=== PATIENT | female | born 1955 | race Caucasian/White ===

== ENCOUNTER 2021-05-18 14:43 | Outpatient (CLI) | payer OTHER, SELFPAY ==
--- NOTE | 2021-05-18 14:47 | BI_ITS ---
MAMMOGRAPHY - BILATERAL SCREENING REASON FOR EXAM: Female, 65 years old. Routine annual screening examination. PERTINENT HISTORY: Non-contributory. TECHNIQUE: Digital bilateral breast remington (3D mammographic acquisition) in the CC and MLO projections. 2-D mediolateral oblique (MLO) and craniocaudad (CC) views of both breasts were obtained. CAD: Full Field Digital Mammography with Computer Added Detection was performed. COMPARISON: No comparison mammograms available at this time. If any prior films become available, an addendum to this report can be generated. FINDINGS: Breast Composition: There are scattered areas of fibroglandular density. There are no dominant masses or suspicious calcifications. Small benign-appearing bilateral axillary lymph nodes. No other significant abnormalities are identified. BI/SCRN MAMM (CAD)W/REMINGTON BILAT IMPRESSION: Negative screening mammogram. Yearly followup mammogram recommended. (A) ASSESSMENT CATEGORY: BIRADS Category 2: Benign. A letter regarding these results will be sent to the patient by the facility within 30 days. Approximately 10% of breast cancers are not detected by mammography. A normal mammogram should not delay biopsy of a clinically suspicious abnormality. [id number] Electronically Signed: Reinaldo Pantoja MD at 7:46 EST ,
== END 2021-05-18 23:59 | disposition home or self-care (01) ==
LOC: OPBI 14:45
PROVIDERS: Referring Provider Thoracic Surgery (Cardiothoracic Vascular Surgery); Visit Provider Thoracic Surgery (Cardiothoracic Vascular Surgery)
DX: Z12.31 Encounter for screening mammogram for malignant neoplasm of breast (principal)
CPT/HCPCS: 77063; 77067

== ENCOUNTER 2021-09-11 17:22 | Emergency (ER) | payer OTHER, SELFPAY ==
[2021-09-11 17:22] VITALS: BP 149/98; PULSE 63; RESP 12; TEMP 36.2; O2SAT 100; BMI 33.0
[2021-09-11 17:25] VITALS: O2SAT 98
--- NOTE | 2021-09-11 17:25 | ED.RN ---
ENCOURAGED DEEP BREATHING T CALMED. DISTRACTION WITH PHONE ALSO HELPED WITH BREATHING.
--- NOTE | 2021-09-11 17:54 | EKG12_ITS ---
Test Reason : CP Blood Pressure : / mmHG Vent. Rate : 069 BPM Atrial Rate : 069 BPM P-R Int : 182 ms QRS Dur : 078 ms QT Int : 380 ms P-R-T Axes : 033 004 008 degrees QTc Int : 407 ms Normal sinus rhythm Normal ECG Confirmed by SYEDA RAMIREZ, SARAH ([id number]), food expeditor [employer] ([id number]) on 09/13/2021 8:25:33 AM Referred By: ALBERTO Confirmed By:SARAH LANDA MD
--- NOTE | 2021-09-11 17:55 | EDS_ITS ---
HPI History of Present Illness Chief Complaint: Shortness of Breath Informant: patient Narrative Narrative: Sudden pain lower started on upper epigastric 2 PM today. Nausea dyspnea. Denies cough. History of achalasia with repair 15 years ago at [facility] with Dr. Galvan. She took Prilosec when symptoms occurred. Typically does not take daily medications. Denies recent travel, surgeries, immobilizations. No history of PE or DVT. No cough. Currently symptoms subsided. She is concerned of heart attack. She has 2 hypertension diabetes or cholesterol history. Stress test years ago. EKG from EMS reveals normal sinus rhythm no acute changes. Denies any current nausea. Prior similar symptoms: Yes PFSH PFSH Medical History no medical history Home Medications ascorbic acid (vitamin C) 500 mg tablet (Vitamin C) 500 mg PO DAILY 09/11/21 [History Last Taken Unknown] coenzyme Q10 100 mg capsule (Co Q-10) 100 mg PO DAILY 09/11/21 [History Last Taken Unknown] multivitamin 1 tab PO DAILY 09/11/21 [History Last Taken Unknown] Allergy/AdvReac Type Severity Reaction Status Date / Time No Known Allergies Allergy Verified 09/11/21 17:25 Surgical History no surgical history Social History Smoking Status: Current some day smoker tobacco type: cigarettes ROS ROS ED Constitutional Constitutional ED: Denies chills, fever(s) or sweats Eyes Eyes: Denies change in vision ENT ENT ED: Denies dysphagia or sore throat Cardiovascular Cardiovascular: Reports chest pain; Denies leg edema, palpitations or racing heartbeat Respiratory/Chest Respiratory/Chest: Reports dyspnea; Denies cough or dyspnea on exertion Gastrointestinal Gastrointestinal: Reports abdominal pain; Denies diarrhea, nausea or vomiting Genitourinary Genitourinary ED: Denies dysuria, hematuria or urinary frequency Musculoskeletal Musculoskeletal: Denies back pain, extremity pain or neck pain Integumentary Denies rash or wounds Neurologic Neurologic: Denies headache(s), paresthesias or weakness EXAM Physical Exam Const Vital Signs: 09/11/21 17:22 09/11/21 17:25 09/11/21 17:35 Temperature 97.1 F L Temperature Source Temporal Pulse Rate 63 Respiratory Rate 12 Respiratory Effort Normal Respiratory Depth Normal Respiratory Pattern Normal Blood Pressure 149/98 H Blood Pressure Mean 115 Pulse Ox 100 Oxygen Delivery Method Room Air Room Air Room Air 09/11/21 19:16 Temperature Temperature Source Pulse Rate 82 Respiratory Rate 18 Respiratory Effort Respiratory Depth Respiratory Pattern Blood Pressure 139/94 H Blood Pressure Mean 109 Pulse Ox 95 Oxygen Delivery Method Room Air Positive well nourished and well developed General Appearance ED: well developed and NAD HEENT Reports moist mucous membranes normocephalic and atraumatic Eyes PERRL, EOMs intact bilaterally and conjunctivae normal General Eye ED: Yes normal appearance of both eyes Neck no lymphadenopathy and supple General: Negative for tenderness Chest Wall Chest: Negative for tenderness Resp normal respiratory effort and normal air movement Effort and Inspection: symmetric chest movement; Negative for respiratory distress Cardio regular rate, regular rhythm and no murmurs Peripheral Pulses: pulses 2+ throughout GI normal to inspection, nondistended, normoactive bowel sounds and non-tender GI Narrative: Negative Carvalho's or McBurney's tenderness. Palpation: Negative for guarding or rebound tenderness present Back/Spine no CVA tenderness and no thoracic nor lumbar tenderness Extremity normal to inspection General Extremety ED: Negative for edema or tenderness General Extremity: Negative for edema Neuro oriented x3 and no sensory deficits noted Sensorium / Orientation: awake and alert Skin no rashes or lesions noted and no wounds MDM MDM MDM Narrative Medical decision making narrative: Patient presenting with lower sternal epigastric pain that is resolving on evaluation. Cardiac work-up negative heart score is a 2. Chest x-ray 1 view reviewed by myself and read by radiology shows no acute process. I did check abdominal labs elevated lipase of 825 elevated transaminitis slightly elevated with mild elevated direct bilirubin at 0.58. I obtain ultrasound notes cholelithiasis with no cholecystitis and normal common bile duct. With patient's labs however discussed with her the possibility of choledocholithiasi s. There is no current GI coverage to discuss this evening. Discussed with her findings for possible admission however patient is declining this at this time since she is feeling better. She states she would like to be seen as an outpatient. Therefore she was given follow-up with GI Dr. Sifuentes along with surgery as an outpatient. She states she is established with [facility]. All questions were answered. Lab Data Attestation: I reviewed the patient's lab results. Labs: Laboratory Results - last 24 hr 09/11/21 09/11/21 09/11/21 17:35 17:35 20:08 WBC 7.5 RBC 4.24 Hgb 13.9 Hct 42.0 MCV 99.1 H MCH 32.8 H MCHC 33.1 RDW Std Deviation 44.0 H RDW Coeff of Micaela 12.3 Plt Count 254 MPV 9.6 Immature Gran % (Auto) 0.500 Neut % (Auto) 75.3 H Lymph % (Auto) 15.6 L Haskell % (Auto) 7.8 Eos % (Auto) 0.5 Baso % (Auto) 0.3 Absolute Neuts (auto) 5.6 Absolute Lymphs (auto) 1.16 Nucleated RBC % 0 Sodium 136 Potassium 3.8 Chloride 104 Carbon Dioxide 26.0 Anion Gap 6 BUN 15 Creatinine 0.78 Estim Creat Clear Calc 62.92 Est GFR (MDRD) Af Amer 96 Est GFR (MDRD) Non-Af 79 BUN/Creatinine Ratio 19.3 Glucose 122 H Calcium 9.1 Total Bilirubin 1.10 H Direct Bilirubin 0.58 H AST 162 H ALT 106 H Alkaline Phosphatase 123 H Troponin I High Sens < 3 L < 3 L Total Protein 6.7 Albumin 3.5 Globulin 3.2 Lipase 825 H Radiography Diagnostic Testing: Clinical Impression(s) from Imaging Studies Gallbladder Ultrasound 09/11/21 18:59 IMPRESSION: 1. Cholelithiasis but no acute cholecystitis. 2. Hepatic steatosis. Electronically Signed: Richard Guzman MD at 20:56 EDT Reading Location ID and State: [address] [place] [address] Tel , Service support , EKG Initial EKG: Attestation: I personally reviewed and interpreted this EKG as follows: Comments: Sinus rate of 69, no ST changes. Isolated T wave inversion in lead III, nonspecific. Similar findings from April 2016. Discharge Plan Triage Chief Complaint: Shortness of Breath ED Provider: Yo Solis Dx/Rx/DC Orders Clinical Impression: Acute pancreatitis, Transaminitis, Cholelithiasis, Chest pain Instructions: What Are Gallstones, ED Pancreatitis Prescriptions: No Action multivitamin Tablet 1 tab PO DAILY ascorbic acid (vitamin C) [Vitamin C] 500 mg Tablet 500 mg PO DAILY coenzyme Q10 [Co Q-10] 100 mg Capsule 100 mg PO DAILY Primary Care Provider: Care Physician,No Primary Referrals: Phil Gallegos MD [STAFF PHYSICIAN] - 1 Week Friend,DO Hu [STAFF PHYSICIAN] - 3-5 Days Care Physician,No Primary [Primary Care Provider] - Disposition Disposition: Home, Self Care Discharge Date/Time: 09/11/21 21:50
--- NOTE | 2021-09-11 17:57 | RAD_ITS ---
STUDY: X-RAY CHEST REASON FOR EXAM: Female, 66 years old. Chest pain TECHNIQUE: Single AP portable view of the chest. COMPARISON: Comparison is made with prior study dated 04/22/2016. FINDINGS: EKG electrodes are seen. The lungs are clear and expanded. There is no demonstrated pleural abnormality. Normal size heart. Normal mediastinum and stephen. Normal visualized pulmonary arteries. There is atherosclerotic tortuosity of the aortic arch and descending thoracic aorta. Normal visualized thoracic spine. Normal visualized ribs, clavicles, and shoulders. There is no demonstrated abnormality of the visualized soft tissue structures of the upper abdomen. RAD/Chest 1 View (Portable) IMPRESSION: No acute abnormality is seen. Electronically Signed: Reinaldo Pantoja MD at 9:38 EDT ,
[2021-09-11 18:09] LABS: Absolute Lymphocyte Count 1.16 X10^3/uL (0.83-4.51); Absolute Neutrophil Count 5.6 X10^3/uL (2.0-7.7); Basophil# 0.02 X10^3/uL; Basophil% 0.3 % (0-1); Eosinophil# 0.04 X10^3/uL; Eosinophils% 0.5 % (0-5); Hemoglobin 13.9 g/dL (12.0-15.0); Lymphocyte # 1.16 X10^3/ul (0.83-4.51); Lymphocyte % 15.6 % (19-41); Mean Corp Hgb Conc 33.1 g/dL (32-36); Mean Corpuscular Hgb 32.8 pg (27.0-32.0); Mean Corpuscular Volume 99.1 fL (81-99); Mean Platelet Vol. 9.6 fl (6.2-12.0); Monocyte# 0.58 X10^3/uL; Monocyte% 7.8 % (0-10); NRBC Flagged by Analyzer 0 % (0-5); Neutrophil # 5.61 X10^3/uL (2.7-7.7); Neutrophil % 75.3 % (47-70); Platelet Count 254 K/mm3 (150-450); RBC Distribution Width CV 12.3 % (11.6-14.6); Red Blood Count 4.24 M/mm3 (4.2-5.4); White Blood Count 7.5 K/mm3 (4.4-11.0)
[2021-09-11 18:34] LABS: AST(SGOT) 162 U/L (15-37); Alanine Aminotransfer ALT/SGPT 106 U/L (13-56); Albumin, Serum 3.5 g/dL (3.2-5.0); Alkaline Phosphatase 123 U/L (45-117); Anion Gap 6 (5-15); BUN 15 mg/dL (7-18); BUN/Creat Ratio 19.3 RATIO (10-20); Bilirubin, Direct 0.58 mg/dL (0.00-0.30); Calcium,Total 9.1 mg/dL (8.5-10.1); Chloride 104 mmol/L (98-107); Creatinine, Serum 0.78 mg/dL (0.55-1.02); EST Glomerular Filtration Rate 79 mL/min (>60); Est Glom Filt Rate - Afr Amer 96 mL/min (>60); Estimated Creatinine Clearance 62.92 ml/min; Globulin 3.2 g/dL (2.2-4.2); Glucose 122 mg/dL (74-106); Lipase 825 U/L (73-393); Potassium 3.8 mmol/L (3.5-5.1); Protein, Total 6.7 g/dL (6.4-8.2); Sodium Level 136 mmol/L (136-145); Troponin-I HS (w/2H Reflex) < 3 pg/mL (3.0-54.0)
--- NOTE | 2021-09-11 18:59 | US_ITS ---
EXAM: US ABDOMEN LIMITED, RIGHT UPPER QUADRANT CLINICAL INDICATION: abd pain -- elevated lipase, elevated liver enzymes TECHNIQUE: Real-time ultrasound of the right upper quadrant with image documentation. This report was created using [employer] report generation technology. COMPARISON: None. FINDINGS: LIVER: Echogenic liver with focal fatty sparing adjacent to the gallbladder. Portable vein is patent with hepatopedal direction of blood flow. No intrahepatic biliary ductal dilation. GALLBLADDER: Sonographic Carvalho''s sign is absent. Tiny stones are identified at the posterior aspect of the gallbladder. No gallbladder wall thickening is demonstrated. No pericholecystic fluid. COMMON BILE DUCT: Common bile duct is normal. The proximal common bile duct is within normal limits for the patient''s age. PANCREAS: Visualized pancreas is unremarkable. RIGHT KIDNEY: Right kidney is normal. There is no hydronephrosis. No shadowing calculus. No focal lesion or perinephric collection is demonstrated. FREE FLUID: No ascites. US/Gallbladder IMPRESSION: 1. Cholelithiasis but no acute cholecystitis. 2. Hepatic steatosis. Electronically Signed: Richard Guzman MD at 20:56 EDT ,
[2021-09-11 19:16] VITALS: BP 139/94; PULSE 82; RESP 18; O2SAT 95
[2021-09-11 20:02] LABS: Reflex Troponin-HS? (from REC) Y
[2021-09-11 20:39] LABS: Troponin-I HS < 3 pg/mL (3.0-54.0)
== END 2021-09-11 21:50 | disposition home or self-care (01) ==
PROVIDERS: Emergency Provider Emergency Medicine; Visit Provider Emergency Medicine
DX: K85.90 Acute pancreatitis without necrosis or infection, unspecified (principal); R74.01 Elevation of levels of liver transaminase levels; K80.20 Calculus of gallbladder without cholecystitis without obstruction; F17.210 Nicotine dependence, cigarettes, uncomplicated; R07.9 Chest pain, unspecified
CPT/HCPCS: 71045; 76705; 80048; 80076; 83690; 84484; 85025; 93005; 99284

== ENCOUNTER → 2023-03-13 | Outpatient (CLI) | payer MEDICARE, SELFPAY ==
--- NOTE | 2023-03-13 14:17 | BI_ITS ---
MAMMOGRAPHY - BILATERAL SCREENING 3-D TOMOSYNTHESIS REASON FOR EXAM: Female, 67 years old. Routine annual screening mammogram. PERTINENT HISTORY: No significant family history. TECHNIQUE: 2-D mammograms and 3-D Tomosynthesis of the breast (s) were performed. CAD was performed. COMPARISON: July 18, 2021 FINDINGS: Stable predominantly fatty replaced breast tissue. Stable normal lymph nodes and scattered benign calcifications bilaterally. No dominant masses, suspicious microcalcifications, asymmetry, skin thickening or nipple retraction. BI/SCRN MAMM (CAD)W/REMINGTON BILAT IMPRESSION: No mammographic signs of malignancy. Yearly follow-up bilateral screening mammogram recommended. ASSESSMENT CATEGORY: BIRADS Category 2: Benign. A letter regarding these results will be sent to the patient by the facility within 30 days. FOLLOW UP RECOMMENDATION: Yearly follow up mammogram recommended. (A) Approximately 10% of breast cancers are not detected by mammography. A normal mammogram should not delay biopsy of a clinically suspicious abnormality. Electronically Signed: Benjamin Banks MD at 10:39 EST ,
== END | disposition home or self-care (01) ==
PROVIDERS: PCP Nurse Practitioner Family; Referring Provider Nurse Practitioner Family; Visit Provider Nurse Practitioner Family
DX: Z12.31 Encounter for screening mammogram for malignant neoplasm of breast (principal)
CPT/HCPCS: 77063; 77067

== ENCOUNTER → 2024-06-30 | Outpatient (CLI) | payer MEDICARE, SELFPAY ==
[2024-06-30 16:49] LABS: Hematocrit 43.9 % (37-47); Mean Corp Hgb Conc 34.2 g/dL (32-36); Mean Corpuscular Hgb 32.8 pg (27.0-32.0); Mean Corpuscular Volume 95.9 fL (81-99); Mean Platelet Vol. 9.8 fl (6.2-12.0); Platelet Count 270 K/mm3 (150-450); RBC Distribution Width CV 12.5 % (11.6-14.6); RBC Distribution Width SD 44.3 fl (35.1-43.9); Red Blood Count 4.58 M/mm3 (4.2-5.4); White Blood Count 4.9 K/mm3 (4.4-11.0)
[2024-06-30 17:23] LABS: Anion Gap 14 (5-15); BUN 13 mg/dL (4-19); BUN/Creat Ratio 16.7 RATIO (10-20); Calcium,Total 9.8 mg/dL (7.6-11.0); Carbon Dioxide 23.1 mmol/L (21.0-32.0); Chloride 101 mmol/L (98-108); Cholesterol 301 mg/dL (<=200); Creatinine, Serum 0.75 mg/dL (0.70-1.20); EST Glomerular Filtration Rate 87 (>60); Follicle Stimulating Hormone 73.6 mIU/mL; Glucose 92 mg/dL (70-99); High Density Lipoprotein 49 mg/dL; Low Density Lipoprotein Calc. 146 mg/dL; Luteinizing Hormone 34.7 mIU/mL; Sodium Level 138 mmol/L (133-145); Triglycerides 534 mg/dL; Very Low Density Lipoprotein 107 mg/dL (5-40); Vitamin B12 651 pg/mL (180-914); Vitamin D,25 Hydroxy 36.5 ng/mL (30-100); cholesterol:hdl ratio screen 6.19
[2024-07-02 04:07] LABS: PROGESTERONE 0.1 ng/mL (.)
== END | disposition home or self-care (01) ==
LOC: VSLAB 13:49
PROVIDERS: PCP Nurse Practitioner Family; Visit Provider Nurse Practitioner Family
DX: R68.82 Decreased libido (principal); R54 Age-related physical debility; E55.9 Vitamin D deficiency, unspecified; Z13.220 Encounter for screening for lipoid disorders
CPT/HCPCS: 36415; 80048; 80061; 82306; 82607; 82672; 83001; 83002; 84144; 84402; 84403; 85027

== ENCOUNTER → 2024-11-24 | Outpatient (CLI) | payer MEDICARE, SELFPAY ==
[2024-11-24 18:36] LABS: Hematocrit 47.2 % (37-47); Hemoglobin 15.8 g/dL (12.0-15.0); Immature Granulocytes Count 0.010 X10^3/uL (0.0-0.0); Mean Corp Hgb Conc 33.5 g/dL (32-36); Mean Corpuscular Volume 97.1 fL (81-99); Mean Platelet Vol. 10.1 fl (6.2-12.0); NRBC Flagged by Analyzer 0 % (0-5); Platelet Count 270 K/mm3 (150-450); RBC Distribution Width CV 12.7 % (11.6-14.6); RBC Distribution Width SD 45.4 fl (35.1-43.9); Red Blood Count 4.86 M/mm3 (4.2-5.4); White Blood Count 4.8 K/mm3 (4.4-11.0)
[2024-11-24 19:16] LABS: AST(SGOT) 24 U/L (<=31); Alanine Aminotransfer ALT/SGPT 27 U/L (<=34); Albumin, Serum 4.4 g/dL (3.4-4.8); Alkaline Phosphatase 106 U/L (35-104); Anion Gap 13 (5-15); BUN 11 mg/dL (4-19); BUN/Creat Ratio 14.1 RATIO (10-20); Calcium,Total 9.9 mg/dL (7.6-11.0); Carbon Dioxide 23.5 mmol/L (21.0-32.0); Chloride 101 mmol/L (98-108); Cholesterol 292 mg/dL (<=200); Ferritin 255 ng/mL (22-378); Globulin 2.7 g/dL (2.2-4.2); Glucose 92 mg/dL (70-99); Low Density Lipoprotein Calc. 143 mg/dL; Magnesium 2.2 mg/dL (1.5-2.2); Potassium 4.3 mmol/L (3.3-5.1); Triglycerides 512 mg/dL; Very Low Density Lipoprotein 102 mg/dL (5-40); Vitamin B12 426 pg/mL (180-914); cholesterol:hdl ratio screen 6.28
== END | disposition home or self-care (01) ==
PROVIDERS: PCP Nurse Practitioner Family; Referring Provider Family Medicine; Visit Provider Family Medicine
DX: R25.1 Tremor, unspecified (principal); E78.2 Mixed hyperlipidemia
CPT/HCPCS: 36415; 80053; 80061; 82607; 82728; 83735; 84443; 85025